=== PATIENT | female | born 1965 | race Caucasian/White ===

== ENCOUNTER 2016-11-05 11:08 | Emergency (ER) | payer BC ==
[~2016-11-05] VITALS: Ht 165.1 cm; Wt 83.9 kg
[~2016-11-05 11:08] MED LIST: LORTAB 5/500 501 TAB PO
[2016-11-05] MEDS ORDERED: MEDROL 4MG. DOSE4 MG PO (11:51)
[2016-11-05] MEDS ORDERED: ZITHROMAX Z PA250 MG PO (11:51)
--- NOTE | 2016-11-05 11:52 | Urgent Treatment Center Report ---
History of Present Issue Date/Time Seen by Provider 11/05/16 1126 Visit Reason Pt arrived:Walked Presenting Problem:PT STATES SHE BEGAN FEELING BAD FRIDAY. STATES CONGESTION, COUGH, WHEEZE AND FATIGUE Location if Accident: Onset of symptoms date/time:11/01/16/ or onset unknown for:MEDICAL HX UNKNOWN Have you (or family members/close friends) recently traveled outside the [place]? N If Yes, where/when: Have you had exposure to infectious disease within the past month? TB? Other? Specify: Patient states that she has not been feeling well since Friday states that she has been having cough, congestion and feeling tired state that she has noticed some wheezing but not sure if it is coming from her lungs or bronchi because of drainage ALLERGIES Coded Allergies: Penicillins (11/05/16) pseudoephedrine (11/05/16) Home Medications Reported Medications No Known Home Medications History Medical History General CAD? No Angina: No MA: No Hypertension? No Hyperlipidemia? No CHF? No DVT? No PE? No COPD? No Asthma? No Anemia? No GERD? No Gastric ulcers? No GI Bleed? No Hernia? No Thyroid Problems? No Hypothyroidism? No CVA? No Seizures? No Diabetes? No Renal Insuffiency? No UTI? No Stones? No BPH? No GB Disease: No Nephritic Syndrome? No Asplenia? No Hepatitis? No Sickle Cell Disease? No Arthritis? No Migraines? No Cataracts? No Glaucoma? No MRSA? No HIV? No TB? No Anxiety? No Depression? No Cancer? 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 Respiratory cough Physical Exam Vital Signs Vital Signs Date Time Temp Pulse Resp B/P Pulse O2 O2 Flow FiO2 Ox Delivery Rate 11/05 1117 97.3 84 20 147/95 97 General Appearance normal appearance, WD/WN, no apparent distress Ear, Nose, Throat sinus pain/drainage, nasal congestion, throat red, irritated, swollen, drainage noted, greenish discharge from nose Respiratory Status Yes: trachea midline, chest symmetrical, non tender chest. No: respiratory distress. Lung Sounds bilateral: normal breath sounds, lungs clear. Cardiovascular normal exam, regular rate/rhythm, no peripheral edema, no gallop Neurologic alert, drop clipper II-XII nml as tested, normal exam, no motor/sensory deficits, oriented x 3 Medical Decision Making LABS/Meds/Orders Pt receiving controlled substance in ED? No Results/Orders Orders Procedure Date/time Status CHEST(2 VIEWS-NOT PORTABLE) 11/05 1121 Active XRAY/CT/US XRAY/CT/US XRAY chest XR interpretation by reviewed by me Xray Results normal/NAD Departure Departure Time of Disposition 1147 Disposition DC Home or Self Care(routine) Clinical Impression Primary Impression: Upper respiratory infection Qualifiers: URI type: unspecified URI Qualified Code: J06.9 - Acute upper respiratory infection, unspecified Condition STABLE Referrals Alfonso Tello MD (Family) Patient Instructions Cough, DI for Cough -- Adult, DI for Sinusitis Additional Instructions Drink plenty of fluids Over the counter Motrin or Tylenol as needed for fever or pain Take Medication as prescribed Follow up with family doctor in 1-2 days if no improvement in symptoms Return if needed Discharge Counseling Counseled pt/family regarding diagnosis, test results, medications/RX, home care, follow up needs Prescriptions Current Visit Scripts Azithromycin (Zithromycin (Z-LAVERNE) 250MG Tab) 250 MG PO DAILY #6 TAB TAKE TWO (2) TABLETS ON DAY 1, THEN ONE (1) TABLET DAY #2 THRU #5 Methylprednisolone (Medrol Dose Laverne) 4 MG PO UD #1 LAVERNE TAKE DIRECTED ON PACKAGING at 1152
--- NOTE | 2016-11-05 11:52 | Urgent Treatment Center Report ---
History of Present Issue Date/Time Seen by Provider 11/05/16 1126 Visit Reason Pt arrived:Walked Presenting Problem:PT STATES SHE BEGAN FEELING BAD FRIDAY. STATES CONGESTION, COUGH, WHEEZE AND FATIGUE Location if Accident: Onset of symptoms date/time:11/01/16/ or onset unknown for:MEDICAL HX UNKNOWN Have you (or family members/close friends) recently traveled outside the [place]? N If Yes, where/when: Have you had exposure to infectious disease within the past month? TB? Other? Specify: Patient states that she has not been feeling well since Friday states that she has been having cough, congestion and feeling tired state that she has noticed some wheezing but not sure if it is coming from her lungs or bronchi because of drainage ALLERGIES Coded Allergies: Penicillins (11/05/16) pseudoephedrine (11/05/16) Home Medications Reported Medications No Known Home Medications History Medical History General CAD? No Angina: No NE: No Hypertension? No Hyperlipidemia? No CHF? No DVT? No PE? No COPD? No Asthma? No Anemia? No GERD? No Gastric ulcers? No GI Bleed? No Hernia? No Thyroid Problems? No Hypothyroidism? No CVA? No Seizures? No Diabetes? No Renal Insuffiency? No UTI? No Stones? No BPH? No GB Disease: No Nephritic Syndrome? No Asplenia? No Hepatitis? No Sickle Cell Disease? No Arthritis? No Migraines? No Cataracts? No Glaucoma? No MRSA? No HIV? No TB? No Anxiety? No Depression? No Cancer? 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 Respiratory cough Physical Exam Vital Signs Vital Signs Date Time Temp Pulse Resp B/P Pulse O2 O2 Flow FiO2 Ox Delivery Rate 11/05 1117 97.3 84 20 147/95 97 General Appearance normal appearance, WD/WN, no apparent distress Ear, Nose, Throat sinus pain/drainage, nasal congestion, throat red, irritated, swollen, drainage noted, greenish discharge from nose Respiratory Status Yes: trachea midline, chest symmetrical, non tender chest. No: respiratory distress. Lung Sounds bilateral: normal breath sounds, lungs clear. Cardiovascular normal exam, regular rate/rhythm, no peripheral edema, no gallop Neurologic alert, cash specialist II-XII nml as tested, normal exam, no motor/sensory deficits, oriented x 3 Medical Decision Making LABS/Meds/Orders Pt receiving controlled substance in ED? No Results/Orders Orders Procedure Date/time Status CHEST(2 VIEWS-NOT PORTABLE) 11/05 1121 Active XRAY/CT/US XRAY/CT/US XRAY chest XR interpretation by reviewed by me Xray Results normal/NAD Departure Departure Time of Disposition 1147 Disposition DC Home or Self Care(routine) Clinical Impression Primary Impression: Upper respiratory infection Qualifiers: URI type: unspecified URI Qualified Code: J06.9 - Acute upper respiratory infection, unspecified Condition STABLE Referrals Alfonso Tello MD (Family) Patient Instructions Cough, DI for Cough -- Adult, DI for Sinusitis Additional Instructions Drink plenty of fluids Over the counter Motrin or Tylenol as needed for fever or pain Take Medication as prescribed Follow up with family doctor in 1-2 days if no improvement in symptoms Return if needed Discharge Counseling Counseled pt/family regarding diagnosis, test results, medications/RX, home care, follow up needs Prescriptions Current Visit Scripts Azithromycin (Zithromycin (Z-LAVERNE) 250MG Tab) 250 MG PO DAILY #6 TAB TAKE TWO (2) TABLETS ON DAY 1, THEN ONE (1) TABLET DAY #2 THRU #5 Methylprednisolone (Medrol Dose Laverne) 4 MG PO UD #1 LAVERNE TAKE DIRECTED ON PACKAGING at 1152
[2016-11-05 11:57] VITALS: BP 147/95
--- NOTE | 2016-11-05 13:11 | RADIOLOGY REPORT PS360 ---
CHEST(2 VIEWS-NOT PORTABLE) COMPARISON: None HISTORY: Cough and congestion TECHNIQUE: PA and lateral chest FINDINGS: The lung kelsey are fairly well-expanded and appear clear of infiltrate. The cardiac silhouette and vascularity are normal. There are calcified right paratracheal and right hilar nodes. There is no pleural fluid. IMPRESSION: Old granulomatous disease, no acute chest pathology noted
== END 2016-11-05 11:57 | disposition home or self-care (01) ==
LOC: UTC 11:08
DX: J06.9 Acute upper respiratory infection, unspecified (principal)

== ENCOUNTER → 2017-04-18 | Outpatient (CLI) | payer BC ==
[~2017-04-18] MED LIST changes: +MEDROL 4MG. DOSE4 MG PO; +ZITHROMAX Z PA250 MG PO
--- NOTE | 2017-04-22 12:15 | RADIOLOGY REPORT PS360 ---
DIG MAMM-SCREEN YUE W/CAD CAD Screening ORDERING PHYSICIAN : Sukhdeep Shanks MD PATIENT AGE: 52 years GENDER: Female COMPARISON: Previous mammograms: October 2010 and May 2009 INDICATION: Routine screening 52-year-old. No hormones no new complaints noncontributory family history. TECHNIQUE: Standard CC and MLO images were obtained. R2 CAD reviewed. FINDINGS: Moderately dense breast tissue most evident towards upper-outer quadrant and lateral breast is again seen RIGHT BREAST: Subtle Decreasing glandular density at the superior retroareolar region. On MLO view. LEFT BREAST: Slight decreased glandular density immediate retroareolar region but no significant new areas of concern Bilateral follow-up in one year recommended IMPRESSION: Negative No new findings. No significant interval change . Bilateral follow-up one year recommended BI-RADS CATEGORY: 1_Negative RECOMMENDED FOLLOWUP: 12M 12 MONTH FOLLOW-UP (A letter has been sent to the patient regarding results of the study.)
== END ==
LOC: RAD 16:32
DX: Z12.31 Encounter for screening mammogram for malignant neoplasm of breast (principal)
CPT/HCPCS: G0202

== ENCOUNTER 2017-05-29 07:08 | Day surgery (SDC) | payer BC ==
[~2017-05-29] VITALS: Ht 162.6 cm; Wt 86.2 kg
[2017-05-29 11:06] VITALS: BP 109/74
--- NOTE | 2017-05-30 10:27 | Operative Note ---
Removal of Neoplasm Date of procedure: 05/29/17 Pre-op diagnosis: Vascular neoplasm scalp 3cm Post-op diagnosis: epidermoid cyst scalp 3cm Surgeon: Neville Blake Anesthesia type: Lo-Mac Description of procedure: The lesion was on the RIGHT side of the parietal scalp. The perilesional area was prepped and infiltrated with a total of 2 percent lidocaine containing epinephrine. The overlying skin was extremely vascular, and hyperemic, and despite previous antibiotic treatment did not to change its physical appearance of redness. A minimally invasive incision was made and the skin was incised, skin was extremely vascular, bleeding was stopped with bipolar cautery. A cystic lesion was identified. And using the meticulous sharp and blunt dissection the cystic lesion was gradually mobilized, there was significant subcutaneous vascularity which was controlled with bipolar cautery. There was pressure indentation of the cranium by the large cystic mass. The lesion was removed in entirety and submitted for frozen section analysis. Clinically it had the appearance of an epidermoid cyst and that is what the pathologist reported on frozen section. All bleeding in the subcutaneous layer was stopped with bipolar cautery blood loss for all the procedure was less than 10 mL and completely stopped. Surgicel snow was placed in the cavity. And a tissue rearrangement geometric plastic repair was done with interrupted 4-0 Vicryl and 4-0 nylon. An occlusive dressing was applied and the patient was sent to recovery in good general condition. EBL (ml): 3 Specimens obtained: Same as above at 1024
== END 2017-05-29 10:28 | disposition home or self-care (01) ==
LOC: SDC 07:08
PROVIDERS: Otolaryngology
PROC: 0JB00ZZ Excision of Scalp Subcutaneous Tissue and Fascia, Open Approach (ICD-10-PCS; principal; 2017-05-29 08:45)
DX: D23.4 Other benign neoplasm of skin of scalp and neck (principal)